=== PATIENT | female | born 1955 | race Caucasian/White ===

== ENCOUNTER → 2016-10-25 | Outpatient (CLI) | payer MEDICAID ==
[~2016-10-25] MED LIST: CHOL20002 PO; GABA300C10 PO; GLIM1TAB2 PO; LINA5TAB PO; METO25TA35 PO; SIMV20TA3 PO; TYLENOL PO
[2016-10-25 16:33] LABS: ASPARTATE AMINO TRANSFERASE 16 U/L (15-37); BLOOD UREA NITROGEN 13 mg/dL (7-18)
== END | disposition home or self-care (01) ==
LOC: STAR 15:14
PROVIDERS: ATTEND Specialist
DX: Z01.818 Encounter for other preprocedural examination (principal); R06.02 Shortness of breath; I10 Essential (primary) hypertension; C53.9 Malignant neoplasm of cervix uteri, unspecified; Z90.710 Acquired absence of both cervix and uterus; Z90.722 Acquired absence of ovaries, bilateral
CPT/HCPCS: 36415; 71020; 80053; 85025; 85610; 85730; 86304; 93005

== ENCOUNTER → 2016-11-20 | Day surgery (SDC) | payer MEDICAID ==
[~2016-11-20] VITALS: Ht 157.5 cm; Wt 75.0 kg
[~2016-11-20] MED LIST changes: +ACETAMINOPHEN 325 MG TABLET PO PRN; +BUPIVACAINE/PF-EPI 0.25% 1:200K ONE; +CEFAZOLIN 1,000 MG ONE; +DEXAMETHASONE 4 MG/ML, 1ML ONE; +FENTANYL PF 100 MCG/2ML IV PRN; +FENTANYL PF 250 MCG/5ML ONE; +GLYCOPYRROLATE 0.2MG/1ML ONE; +HEPARIN 1,000 UNITS/ML, 10ML ONE; +HYDROmorphone 1 MG/ML, 1ML ONE; +KETAMINE 10 MG/ML, 20ML ONE; +KETOROLAC 30 MG/1 ML IV PRN; +KETOROLAC 30 MG/1 ML ONE; +LABETALOL 5MG/ML, 20ML IV PRN; +LACTATED RINGERS 1,000 ML IV SCH; +MEPERIDINE/PF 25MG/0.5ML IVPush PRN; +METOCLOPRAMIDE 5 MG/ML, 2ML ONE; +MIDAZOLAM 1 MG/ML, 2ML IV PRN; +NEOSTIGMINE 1 MG/ML, 10ML ONE; +ONDANSETRON 2MG/ML, 2ML IVPush PRN; +ONDANSETRON 2MG/ML, 2ML ONE; +OXYcodone 5 MG/5 ML ORAL.SOL UDC ONE; +OXYcodone 5 MG/5 ML ORAL.SOL UDC PO PRN; +PROMETHAZINE 25 MG/ML, 1ML IV PRN; +PROPOFOL 10 MG/ML, 20ML ONE; +ROCURONIUM 10 MG/ML ONE; +hydrALAzine 20 MG/ML, 1ML IV PRN
[2016-11-20] MEDS: HYDROmorphone 1 MG/ML, 1ML IV PRN ×3 (09:55→10:20)
== END | disposition home or self-care (01) ==
LOC: OR 07:30
PROVIDERS: ATTEND Specialist
DX: C54.1 Malignant neoplasm of endometrium (principal); D25.0 Submucous leiomyoma of uterus; D27.0 Benign neoplasm of right ovary; I25.2 Old myocardial infarction; E11.9 Type 2 diabetes mellitus without complications; E66.9 Obesity, unspecified; Z68.30 Body mass index [BMI] 30.0-30.9, adult; Z88.4 Allergy status to anesthetic agent; Z98.890 Other specified postprocedural states; Z82.49 Family history of ischemic heart disease and other diseases of the circulatory system; Z80.9 Family history of malignant neoplasm, unspecified
CPT/HCPCS: 36415; 58571; 82962; 86850; 86900; 86920; 88309; J0690; J1100; J1170; J1644; J1885; J2405; J2704; J2710; J2765; J3010; S2900; 86923; J3490